=== PATIENT | female | born 1975 | race American Indian/Alaskan Native ===

== ENCOUNTER 2016-08-10 08:45 | Emergency (ER) | payer OTHER ==
[2016-08-10 11:10] VITALS: BP 152/92
--- NOTE | 2016-08-11 18:31 | Emergency Department Report ---
Entered by MADISON FLORES, acting as scribe for KEITH BIRCH PA. ED Recheck HPI - General Chief Complaint: Medical Clearance Stated Complaint: FOLLOW UP Time Seen by Provider: 08/10/16 10:30 Source: patient, family Mode of arrival: Ambulatory Limitations: No Limitations - History of Present Illness Initial Comments: 41 y/o female with no significant PMHx presents to the ED c/o a quantitative HCG lab repeat. Patient was seen in this ED on 08/08/2016, because she had a miscarriage. Patient was told to follow-up in 2 days for lab repeat of hormone levels. Denies abdominal pain, nausea, vomiting, dysuria, urgency, frequency, and vaginal bleeding. Patient states that she feel good now and have no complaints. NKDA. COOLEY Complaint: other (HCG lab repeat) Onset/Timin -: days(s) Initial Visit For: other (patient miscarried on 08/08/2016) Returns Today for: other (repeat quantitative HCG after miscarriage on 2016) Symptoms Since Prior Visit: no new symptoms Context: planned re-check Associated Symptoms: none. denies: fever, chills, chest pain, shortness of breath, abdominal pain, other (nausea, vomiting, dysuria, urgency, frequency, and vaginal bleeding) Treatments Prior to Arrival: other (none) - Related Data Previous Rx's Medication Instructions Recorded Last Taken Type Ondansetron HCl [Zofran] 8 mg PO TID PRN #24 tablet 08/10/14 Unknown Rx metroNIDAZOLE 500 mg PO BID #10 tablet 08/10/14 Unknown Rx Allergies Allergy/AdvReac Type Severity Reaction Status Date / Time No Known Allergies Allergy Verified 08/10/16 08:50 ED Review of Systems Comment: All other systems reviewed and negative Constitutional: no symptoms reported. denies: chills, fever Respiratory: no symptoms reported. denies: cough, orthopnea, shortness of breath, SOB with exertion, SOB at rest, stridor Cardiovascular: denies: chest pain, palpitations, edema, syncope Endocrine: no symptoms reported Gastrointestinal: as per HPI. denies: abdominal pain, nausea, vomiting, diarrhea Genitourinary: as per HPI. denies: urgency, dysuria, frequency, hematuria, discharge, other (vaginal bleeding) Musculoskeletal: denies: back pain, joint swelling Skin: denies: rash ED Past Medical Hx - Past Medical History Previous Medical History?: No - Surgical History Past Surgical History?: No - Family History Family history: no significant - Social History Smoking Status: Never Smoker Substance Use Type: None - Medications Home Medications: Home Medications Medication Instructions Recorded Confirmed Last Taken Type Ondansetron HCl [Zofran] 8 mg PO TID PRN #24 tablet 08/10/14 Unknown Rx metroNIDAZOLE 500 mg PO BID #10 tablet 08/10/14 Unknown Rx ED Physical Exam - General Limitations: No Limitations General appearance: alert, in no apparent distress - Head Head exam: Present: atraumatic, normocephalic - Eye Eye exam: Present: normal appearance, PERRL, EOMI Pupils: Present: normal accommodation - ENT ENT exam: Present: normal exam, mucous membranes moist - Neck Neck exam: Present: normal inspection (supple), full ROM. Absent: tenderness, meningismus, lymphadenopathy - Respiratory Respiratory exam: Present: normal lung sounds bilaterally (clear to ausculatation bilaterally), other (normal work of breathing). Absent: respiratory distress, wheezes, rales, rhonchi, stridor - Cardiovascular Cardiovascular Exam: Present: regular rate (S1/S2), normal rhythm, normal heart sounds - GI/Abdominal GI/Abdominal exam: Present: soft, normal bowel sounds. Absent: distended, tenderness, guarding, rebound, rigid - Extremities Exam Extremities exam: Present: normal inspection, full ROM, normal capillary refill , other (palpable pulses with no vasuclar compromise). Absent: tenderness - Back Exam Back exam: Present: normal inspection, full ROM. Absent: tenderness, CVA tenderness (R), CVA tenderness (L) - Neurological Exam Neurological exam: Present: alert, oriented X3, normal gait, reflexes normal. Absent: motor sensory deficit - Psychiatric Psychiatric exam: Present: normal affect, normal mood - Skin Skin exam: Present: warm, dry, intact, normal color. Absent: rash, cyanosis ( clubbing cyanosis) ED Course Vital Signs 08/10/16 08/10/16 08:50 11:10 Pulse Rate 59 L Blood Pressure 154/103 Blood Pressure 152/92 [Right] O2 Sat by Pulse 100 Oximetry Vital Signs 08/10/16 08/10/16 08:50 11:10 Pulse Rate 59 L Blood Pressure 154/103 Blood Pressure 152/92 [Right] O2 Sat by Pulse 100 Oximetry - Reevaluation(s) Reevaluation #1: 08/10/16 11:27 Patient here for follow-up visit status post miscarriage therefore quantitative hCG checked. Her quantitative hCG 2 days ago 25.37 and now it's 31.78. I spoke with Dr. Leslie and he said that this is okay and that patient can follow up at [facility] with her [employer] [facility] in 2 days.. ED Recheck MDM - Medical Decision Making ED course: Patient here for follow-up visit status post miscarriage therefore quantitative hCG checked. Her quantitative hCG 2 days ago 25.37 and now it's 31.78. I spoke with Dr. Leslie and he said that this is okay and that patient can follow up at [facility] with her [employer] [facility] in 2 days. I communicated this with patient and her family and therefore was understanding. Patient says she was feeling a lot better and she is no longer bleeding, no abdominal or back pain. Her blood pressure was elevated at 154/103 but is still mildly elevated but her diastolic is now at 92. ED Disposition Clinical Impression: Encounter for laboratory test, Elevated BP without diagnosis of hypertension Disposition: DISCHARGED TO HOME OR SELFCARE Is pt being admited?: No Does the pt Need Aspirin: No Condition: Stable Instructions: Spontaneous Miscarriage (ED), Heart Healthy Diet (ED), Low Sodium Diet (ED), Hypertension (ED) Additional Instructions: quantitative hCG was checked today and Stable. Please call [facility] [facility] in 2 days schedule an appointment for follow-up visit miscarriage and hormone recheck They were going to [place] for care so if he cannot get into my [facility] [facility] he can go back to [facility]. Your blood pressure was elevated on 08/08/2016 and it is elevated today. To keep a log of Blood pressure and takes he primary care physician visit to evaluate for hypertension. If you develop abdominal pain and recurrence of bleeding please return to emergency room [facility]. Referrals: [facility] [Outside] - 08/12/16 [facility] [Provider Group] - 08/12/16 Forms: Accompanied Note, Work/School Release Form(ED) Print Language: EMIRATI This documentation as recorded by the SANDRA arias JASMINE,accurately reflects the service I personally performed and the decisions made by me,KEITH BIRCH PA.
== END 2016-08-10 11:44 | disposition home or self-care (01) ==
LOC: ED 08:45
DX: Z32.01 Encounter for pregnancy test, result positive (principal); R03.0 Elevated blood-pressure reading, without diagnosis of hypertension
CPT/HCPCS: 36415; 84702; 84703; 99283

== ENCOUNTER 2017-07-30 13:38 | Inpatient (IN) | payer OTHER ==
[~2017-07-30 13:38] MED LIST: NACL 0.9% IR ONE; WATER FOR IRRIG STERILE IR ONE
[2017-07-30] MEDS ORDERED: TYLENOL PO ONE (15:00)
[2017-07-30 15:03] LABS: Hematocrit 36.4 % (30.3-42.9); Hemoglobin 11.7 gm/dl (10.1-14.3); Mean Corpuscular HGB Conc 32 % (30-34); Mean Corpuscular Hemoglobin 26 pg (28-32); Mean Corpuscular Volume 81 fl (79-97); Platelet Count 194 K/mm3 (140-440); Red Cell Distribution Width 14.9 % (13.2-15.2)
[2017-07-30 15:15] LABS: Bacteria,Urine 1+ /HPF (Negative); Bilirubin,Urine NEG (Negative); Blood,Urine NEG (Negative); Color,Urine Yellow (Yellow); Mucus,Urine FEW /HPF; Protein,Urine <15 mg/dL mg/dL (Negative); Urobilinogen,Urine < 2.0 mg/dL (<2.0); WBC,Urine < 1.0 /HPF (0.0-6.0)
[2017-07-30 15:24] LABS: Alanine Aminotransferase 11 units/L (7-56); Uric Acid 4.9 mg/dL (3.5-7.6)
[2017-07-30] MEDS ORDERED: MAGNESIUM SULFATE IV ONE (15:58)
[2017-07-30] MEDS ORDERED: LACTATED RINGERS 1,000 ML ONE (16:55)
[2017-07-30] MEDS ORDERED: MAGNESIUM SULFATE 4GM/100ML 4 GM/100 ML BAG IV ONE (17:00)
[2017-07-30] MEDS: APRESOLINE IV PRN ×2 (17:11→20:30)
[2017-07-30] MEDS ORDERED: COLACE PO PRN (17:31)
[2017-07-30] MEDS ORDERED: MILK OF MAGNESIA PO PRN (17:31)
[2017-07-30] MEDS ORDERED: ZOFRAN IV PRN (17:31)
[2017-07-30] MEDS ORDERED: BENADRYL PO PRN (17:31)
[2017-07-30] MEDS ORDERED: TYLENOL PO PRN (17:31)
--- NOTE | 2017-07-30 17:38 | History and Physical Report ---
History of Present Illness Date of examination: 07/30/17 Chief complaint: Elevated BP's and headaches History of present illness: Pt is a 42yo BF EDC 09/02/17; EGA 35 1/7 weeks presents from the office for evaluation of elevated BP's and headaches for several days - BP 166/100. She received care at [facility] since 16 weeks and co- managed by [facility] for AMA, Chronic hypertension - on Labetolol 200mg BID; GDM - on Glyburide 5mg TID and + Down's syndrome screen. records are available and GBS is unknown. Pt also desires permanent sterilization. Past History Past Medical History: hypertension, diabetes (GDM) Past Surgical History: section (x2) Social history: no significant social history, - Obstetrical History Expected Date of Delivery: 09/02/17 Actual Gestation: 35 Week(s) 1 Day(s) : 3 Medications and Allergies Allergies Allergy/AdvReac Type Severity Reaction Status Date / Time No Known Allergies Allergy Verified 08/10/16 08:50 Home Medications Medication Instructions Recorded Confirmed Last Taken Type Ondansetron HCl [Zofran] 8 mg PO TID PRN #24 tablet 08/10/14 Unknown Rx metroNIDAZOLE 500 mg PO BID #10 tablet 08/10/14 Unknown Rx Active Meds: Active Medications Hydralazine HCl (Apresoline) 10 mg IV Q4H PRN PRN Reason: Blood Pressure Last Admin: 07/30/17 17:11 Dose: 10 mg Magnesium Sulfate (Magnesium Sulfate 40gm/1000ml) 40 gm in 1,000 mls @ 25 mls/ hr IV DIRECT DANA Review of Systems All systems: negative - Vital Signs Vital signs: Vital Signs Pulse BP 64 186/99 07/30/17 14:08 07/30/17 14:08 Temp Pulse Resp BP Pulse Ox 98.4 F 70 18 178/95 97 07/30/17 14:10 07/30/17 17:37 07/30/17 14:49 07/30/17 17:26 07/30/17 17:37 - Physical Exam Breasts: Positive: deferred Cardiovascular: Regular rate Lungs: Positive: Clear to auscultation Abdomen: Positive: normal appearance, soft Genitourinary (Female): Positive: normal external genitalia Uterus: Positive: enlarged Extremities: Positive: normal - Obstetrical FHR: category 1 Uterine Contraction Monitor Mode: External Results Result Diagrams: 07/30/17 14:34 07/30/17 14:34 Abnormal lab results 07/30/17 07/30/17 Range/Units 14:34 14:34 MCH 26 L (28-32) pg Creatinine 0.4 L (0.7-1.2) mg/dL All other labs normal. Assessment and Plan - Patient Problems (1) 35 weeks gestation of Onset Date: 07/30/17 Current Visit: Yes Status: Acute Plan to address problem: A: IUP @ 35 1/7 weeks Previous C Section x 2 GDM Chronic hypertension with superimposed preeclampsia AMA Desires permanent sterilization P: Admit to L&D for Repeat C Section with BTL Begin IV Magnesium sulfate and IV Hydralazine prn Discussed with Dr Young ([facility]) NICU notified (2) AMA (advanced maternal age) multigravida 35+ Onset Date: 07/30/17 Current Visit: Yes Status: Acute Qualifiers: Trimester: third trimester Qualified Code(s): O09.523 - Supervision of elderly multigravida, third trimester (3) GDM (gestational diabetes mellitus) Onset Date: 07/30/17 Current Visit: Yes Status: Acute Qualifiers: Gestational diabetes mellitus control: oral hypoglycemic-controlled Trimester: third trimester Qualified Code(s): O24.415 - Gestational diabetes mellitus in , controlled by oral hypoglycemic drugs (4) Pre-eclampsia or eclampsia superimposed on pre-existing hypertension, antepartum Onset Date: 07/30/17 Current Visit: Yes Status: Acute
[2017-07-30] MEDS: MAGNESIUM SULFATE 40GM/1000ML 40 GM/1,000 ML BAG IV SCH (17:46)
[2017-07-30] MEDS ORDERED: REGLAN IV ONE (18:55)
[2017-07-30] MEDS ORDERED: BICITRA PO ONE (18:55)
[2017-07-30] MEDS ORDERED: PEPCID IV ONE (18:55)
[2017-07-30] MEDS ORDERED: ANCEF/STERILE WATER 2 GM/20 ML 2 GM/20 ML SYRINGE IV NR (19:00)
[2017-07-30] MEDS ORDERED: PITOCin/NS 20 UNIT/1000ML DRIP 20 UNITS/1,000 ML BAG IV SCH (19:00)
--- NOTE | 2017-07-30 19:03 | Consultation ---
History of Present Illness Consult date: 07/30/17 Requesting physician: SAUL FLORES Reason for consult: gestational hypertension History of present illness: Thank you for your referral of this patient. As you are aware she is a 42 year old para 4004 referred due to AMA, CHTN and GDM. Her blood pressure is markedly elevated at 200/98. We reviewed her chart in the hospital today. Case discussed with patient. Past History Past Medical History: hypertension, diabetes (GDM) Past Surgical History: section (x2) - Obstetrical History : 3 Medications and Allergies Allergies Allergy/AdvReac Type Severity Reaction Status Date / Time No Known Allergies Allergy Verified 08/10/16 08:50 Home Medications Medication Instructions Recorded Confirmed Last Taken Type Ondansetron HCl [Zofran] 8 mg PO TID PRN #24 tablet 08/10/14 Unknown Rx metroNIDAZOLE 500 mg PO BID #10 tablet 08/10/14 Unknown Rx Ferrous Sulfate [Feosol 325 MG tab] 325 mg PO BID #60 tablet 07/30/17 Unknown Rx HYDROcodone/APAP 5-325 [R[place]ven 1 each PO Q6HR PRN #30 tablet 07/30/17 Unknown Rx 5/325] Ibuprofen [Motrin] 800 mg PO Q8HR PRN #30 tablet 07/30/17 Unknown Rx Vit Calc,Iron,Folic 1 each PO DAILY #30 tablet 07/30/17 Unknown Rx [ Vitamins] Active Meds: Active Medications Acetaminophen (Tylenol) 650 mg PO Q4H PRN PRN Reason: Pain MILD(1-3)/Fever >100.5/SOOD Citric Acid/Sodium Citrate (Bicitra) 30 ml PO ONCE ONE Stop: 07/30/17 18:56 Diphenhydramine HCl (Benadryl) 25 mg PO Q6H PRN PRN Reason: Itching Docusate Sodium (Colace) 100 mg PO Q12H PRN PRN Reason: Constipation Famotidine (Pepcid) 20 mg IV ONCE ONE Stop: 07/30/17 18:56 Hydralazine HCl (Apresoline) 10 mg IV Q4H PRN PRN Reason: Blood Pressure Last Admin: 07/30/17 17:11 Dose: 10 mg Magnesium Sulfate (Magnesium Sulfate 40gm/1000ml) 40 gm in 1,000 mls @ 25 mls/ hr IV DIRECT DANA Last Admin: 07/30/17 17:46 Dose: 1 gm/hr, 25 mls/hr Cefazolin Sodium (Ancef/Sterile Water 2 Gm/20 Ml) 2 gm in 20 mls @ 80 mls/hr IV PREOP NR; Protocol Lactated Ringer's (Lactated Ringers) 1,000 mls @ 2,250 mls/hr IV PREOP DANA Stop: 07/31/17 19:27 Oxytocin/Sodium Chloride (Pitocin/Ns 20 Unit/1000ml Drip) 20 units in 1,000 mls @ 0 mls/hr IV TITR DANA Magnesium Hydroxide (Milk Of Magnesia) 30 ml PO QHS PRN PRN Reason: Laxative Effect Metoclopramide HCl (Reglan) 10 mg IV ONCE ONE Stop: 07/30/17 18:56 Multivitamins/Iron/Calcium ( Vitamin) 1 each PO QDAY DANA Ondansetron HCl (Zofran) 4 mg IV Q6H PRN PRN Reason: Nausea And Vomiting - Vital Signs Vital signs: Vital Signs Pulse BP 64 186/99 07/30/17 14:08 07/30/17 14:08 Temp Pulse Resp BP Pulse Ox 98.4 F 64 18 184/94 99 07/30/17 14:10 07/30/17 19:01 07/30/17 14:49 07/30/17 19:00 07/30/17 19:01 Results Result Diagrams: 07/30/17 14:34 07/30/17 14:34 Abnormal lab results 07/30/17 07/30/17 Range/Units 14:34 14:34 MCH 26 L (28-32) pg Creatinine 0.4 L (0.7-1.2) mg/dL All other labs normal. Assessment and Plan ASSESSMENT: 42 year at 35 with gestational diabetes. Possibly Pregestational Advanced maternal age Chronic hypertension with signs of superimposed preeclampsia. We recommend stabilization and delivery. Currently, we would recommend DELIVERY rather than expectant management. DISCUSSION: I've indicated to the patient that there are a number of medical complications which would require early delivery as a general rule for any gestation. I've indicated that unexplained vaginal bleeding, spontaneous labor, - induced hypertension and other complications would require delivery before an elective delivery. I've also indicated the recommendations from the [employer] published in the ACOG committee opinion number 560 regarding early term delivery. As well as recent studies from the Journal Obstetrics and Gynecology published in March [address] Rey et al indicate that for chronic hypertension with signs of severe preelcampsia should be delivered after 34 weeks of gestation. Based on the fact that this patient has preeclampsia and new onset neurological symptoms as well as elevated systolic blood pressure we would recommend DELIVERY of this rather than continued expectant management. REFERENCE: Medically indicated late- and early-term deliveries. Committee Opinion No. 560. [employer]. Obstet Gynecol 2013;121:23120. While some management schemes for the patient with induced hypertension recommend observation in order to administer steroids and enhance maturation, this patient currently has at least TWO contraindication to this kind of expectant management of induced hypertension. These include: * ____Liver function abnormalities, and * _X__ Neurological symptoms (headache). * ____ Abnormal biophysical testing (oligohydramnios) * ____ Severe growth restriction * ____Fetal heart rate findings consistent with hypoxia/ distress * _X__ EGA is greater than 32 weeks gestation RECOMMENDATIONS 1. We have administered steroids to enhance lung maturity. 2. Given her gestational age we would recommend DELIVERY due to SEVERE superimposed preeclampsia. 3. Hydralazine PRN. 10 mg every 30 minutes for SBP > 160 or DBP > 105 x 3 doses HOLD HYDRALAZINE OR APRESSOLINE at this time. 4. Call [facility] for more than 3 dosages of Hydralazine in 24 hours. 5. Observe for improvement in blood pressure. 6. Would proceed as follows: 7. Mode of delivery to be determined by MD montessori preschool teacher. 8. Discussed case with Dr. Saul Flores. Thank you for allowing us to participate in the care of this patient. We look forward to the opportunity to assist in her continued management. If you have any questions, we may be reached [phone].
[2017-07-30] MEDS: LACTATED RINGERS 1,000 ML IV SCH ×2 (19:30→20:35)
[2017-07-30 20:32] LABS: Bilirubin,Urine NEG (Negative); Blood,Urine NEG (Negative); Color,Urine Straw (Yellow); Mucus,Urine FEW /HPF; Protein,Urine <15 mg/dL mg/dL (Negative); Urobilinogen,Urine < 2.0 mg/dL (<2.0); WBC,Urine < 1.0 /HPF (0.0-6.0)
[2017-07-30 20:32] LABS: Hematocrit 36.6 % (30.3-42.9); Hemoglobin 12.1 gm/dl (10.1-14.3); Mean Corpuscular HGB Conc 33 % (30-34); Mean Corpuscular Hemoglobin 27 pg (28-32); Mean Corpuscular Volume 81 fl (79-97); Platelet Count 197 K/mm3 (140-440); Red Blood Count 4.55 M/mm3 (3.65-5.03)
[2017-07-30] MEDS ORDERED: D5LR 1,000 ML IV ONE (20:42)
[2017-07-30 20:56] LABS: Alanine Aminotransferase 11 units/L (7-56); Uric Acid 5.2 mg/dL (3.5-7.6)
[2017-07-31] MEDS ORDERED: ASTRAMORPH PF 10MG/10ML ONE (01:49)
--- NOTE | 2017-07-31 02:10 | Operative Report ---
Operative Report Operative Report: Date of procedure: 07/31/2017 Pre-operative diagnosis: 1. Intrauterine at 35-2/7 weeks 2. Previous 2 3. Gestational diabetes 4. Chronic hypertension with superimposed preeclampsia 5. Advanced maternal age 6. Desires permanent sterilization Post-operative diagnosis: Same Procedure name(s): 1. Repeat low transverse section 2. Bilateral tubal ligation Surgeon: Saul Flores MD Buckle Sorter: None Anesthesia: Spinal anesthesia by Dr. Kirkpatrick EBL: 800 mls Findings: A 1947 g female infant Apgars 8 at 1 minute and 9 at 5 minutes. Clear amniotic fluid. Normal uterus. Normal tubes and ovaries bilaterally. Procedure: After the patient was prepped and draped in usual sterile fashion, and after satisfactory level of epidural anesthesia was obtained, the skin knife was used to make a transverse skin incision through the previous skin scar. The incision was excised down to layer of the fascia, which was nicked in the midline and extended laterally using the Bovie cautery. The rectus muscles were dissected off the rectus fascia both superiorly and inferiorly. The rectus bellies in the midline, and the peritoneum was entered under direct visualization. The peritoneal incision was extended superiorly and inferiorly. A bladder flap was created and the bladder blade was then placed. The uterus was scored in a curvilinear linear fashion, entered in the midline revealing clear amniotic fluid. The 's head was delivered onto the surgical field, and the oropharynx and nasopharynx were bulb suctioned. The rest of the 's body was delivered, cord was doubly clamped and cut and the was handed to the waiting respiratory team. The placenta was manually removed from the uterus, and the uterus removed from its normal anatomical position. After gentle uterine lavage, the incision was inspected and found to be without extensions. It was then closed in 2 layers using 0 Vicryl suture in a running interlocking fashion, the second layer imbricating the first. Attention was then turned to the tubal ligation. First the right fallopian tube was grasped using Anuja, and the Filshie clip was applied to the proximal portion of the tube. Next the left fallopian tube was grasped using the [place], and the Filshie clip was applied to the proximal portion of the tube. After good hemostasis was achieved, copious amounts or irrigation was performed, and the gutters were suctioned free of blood and blood clots. The Tisseel sealant was sprayed across the uterine incision. The uterus was then returned to its normal anatomical position, and after excellent hemostasis assured, the peritoneum was re-approximated using 3-0 Vicryl suture in a running interlocking fashion, and then the rectus muscles were re-approximated using 3-0 Vicryl suture in a [id number] configuration. The fascia was then re-approximated using 0 Vicryl suture in running interlocking fashion. The subcutaneous layer was made hemostatic using Bovie cautery, the Tisseel sealant was sprayed across the fascial incision and the skin edges re- approximated using 4-0 Vicryl suture in a sub-cuticular fashion. Patient tolerated the procedure well was transported to recovery in stable condition.
[2017-07-31] MEDS ORDERED: TUCKS PAD TP PRN (02:13)
[2017-07-31] MEDS ORDERED: LANSINOH TP PRN (02:13)
[2017-07-31] MEDS ORDERED: D50W (25GM) Syringe IV PRN (02:13)
[2017-07-31] MEDS ORDERED: NARCAN 0.4 MG/1 ML IV PRN ×2 (02:13→02:30)
--- NOTE | 2017-07-31 02:29 | Anesthesia Consultation ---
Anesthesia Consult and Med Hx Date of service: 07/31/17 - Airway Anesthetic Teeth Evaluation: Good ROM Head & Neck: Adequate Mental/Hyoid Distance: Adequate Mallampati Class: Class II Intubation Access Assessment: Probably Good - Pulmonary Exam CTA: Yes - Cardiac Exam Cardiac Exam: RRR - Pre-Operative Health Status ASA Pre-Surgery Classification: ASA3, Emergency Proposed Anesthetic Plan: Spinal - Pulmonary Hx Asthma: No - Cardiovascular System Hx Hypertension: Yes (preclampsia) - Central Nervous System Hx Seizures: No Hx Psychiatric Problems: No - Endocrine Hx Renal Disease: No Hx Non-Insulin Dependent Diabetes: Yes (gestational diabetes) Hx Hypothyroidism: No Hx Hyperthyroidism: No - Hematic Hx Anemia: No Hx Sickle Cell Disease: No - Other Systems Hx Alcohol Use: No
[2017-07-31] MEDS ORDERED: PHENERGAN PO PRN (02:30)
[2017-07-31] MEDS ORDERED: PHENERGAN PR PRN (02:30)
--- NOTE | 2017-07-31 02:30 | Post Anesthesia Evaluation ---
- Post Anesthesia Evaluation Patient Participated: Yes Airway Patent: Yes Stable Respiratory Function: Yes Nausea/Vomiting: No Temp > 96.8F: Yes Pain Manageable: Yes Adequeate Hydration: Yes Anesthesia Complications: Yes
--- NOTE | 2017-07-31 02:30 | Anesthesia Day of Surgery ---
Anesthesia Day of Surgery - Day of Surgery Patient Examined: Yes Patient H&P Reviewed: Yes Patient is NPO: Yes Beta Blockers: Yes Cardiac Clearance: Yes Pulmonary Clearance: No
[2017-07-31] MEDS: MAGNESIUM SULFATE 40GM/1000ML 40 GM/1,000 ML BAG IV SCH ×2 (02:52→21:18)
[2017-07-31] MEDS ORDERED: PITOCin/NS 20 UNIT/1000ML DRIP 20 UNITS/1,000 ML BAG IV SCH (03:00)
[2017-07-31] MEDS ORDERED: ANCEF/NS 1 GM/50 ML 1 GM/50 ML BAG IV SCH (03:00)
[2017-07-31] MEDS ORDERED: D5LR 1,000 ML IV SCH (03:00)
[2017-07-31] MEDS ORDERED: SODIUM CHLORIDE FLUSH SYRINGE 10 ML IV NR (03:00)
[2017-07-31] MEDS: DILAUDID IV PRN ×2 (03:33→03:46)
[2017-07-31] MEDS: TORADOL IV PRN ×2 (03:35→09:21)
[2017-07-31] MEDS: APRESOLINE IV PRN ×3 (03:53→21:00)
[2017-07-31] MEDS: ceFAZolin 1 GM in NACL 0.9% 20 ML IV SCH ×2 (05:21→13:51)
[2017-07-31] MEDS ORDERED: DILAUDID ONE (06:12)
[2017-07-31] MEDS ORDERED: APRESOLINE ONE (06:19)
[2017-07-31] MEDS: PRENATAL VITAMIN PO SCH (09:18)
[2017-07-31] MEDS: FEOSOL PO SCH (09:18)
[2017-07-31] MEDS ORDERED: LACTATED RINGERS 1,000 ML ONE (13:25)
[2017-07-31] MEDS: PERCOCET 5/325 PO PRN (13:41)
[2017-07-31] MEDS: LACTATED RINGERS 1,000 ML IV SCH (13:45)
[2017-07-31] MEDS: NORCO 5/325 PO PRN (18:30)
[2017-07-31] MEDS: MOTRIN PO PRN (20:56)
[2017-07-31] MEDS: HumuLIN R SUB-Q SCH (22:29)
[2017-07-31] MEDS: NORMODYNE PO SCH (22:34)
[2017-08-01] MEDS: LACTATED RINGERS 1,000 ML IV SCH (01:41)
[2017-08-01] MEDS: PERCOCET 5/325 PO PRN ×2 (03:27→20:45)
[2017-08-01] MEDS ORDERED: BOOSTRIX IM ONE (06:00)
[2017-08-01] MEDS ORDERED: M-M-R II VACCINE SUB-Q ONE (06:00)
[2017-08-01] MEDS: APRESOLINE IV PRN (06:34)
[2017-08-01] MEDS: MOTRIN PO PRN ×3 (06:54→21:56)
[2017-08-01] MEDS: HumuLIN R SUB-Q SCH ×4 (08:00→22:09)
[2017-08-01] MEDS: NORMODYNE PO SCH ×2 (10:15→21:57)
[2017-08-01] MEDS: FEOSOL PO SCH (10:29)
[2017-08-01] MEDS: PRENATAL VITAMIN PO SCH (10:29)
--- NOTE | 2017-08-01 10:32 | Progress Note ---
Assessment and Plan - Patient Problems (1) 35 weeks gestation of Onset Date: 07/30/17 Current Visit: Yes Status: Resolved (2) AMA (advanced maternal age) multigravida 35+ Onset Date: 07/30/17 Current Visit: Yes Status: Chronic Qualifiers: Trimester: third trimester Qualified Code(s): O09.523 - Supervision of elderly multigravida, third trimester (3) GDM (gestational diabetes mellitus) Onset Date: 07/30/17 Current Visit: Yes Status: Chronic Qualifiers: Gestational diabetes mellitus control: oral hypoglycemic-controlled Trimester: third trimester Qualified Code(s): O24.415 - Gestational diabetes mellitus in , controlled by oral hypoglycemic drugs (4) Pre-eclampsia or eclampsia superimposed on pre-existing hypertension, antepartum Onset Date: 07/30/17 Current Visit: Yes Status: Resolved (5) Status post Onset Date: 08/01/17 Current Visit: Yes Status: Resolved Plan to address problem: A: S/P Repeat C Section with BTL - POD #1 Doing well Chronic hypertension - improved on Labetolol 200mg BID GDM - stable P: Continue RPOC Advance diet as tolerated Continue BP monitoring Subjective - Subjective Date of service: 08/01/17 Principal diagnosis: s/p Repeat C Section with BTL - POD #1 Interval history: Pt is feeling well, complaining of a sore throat. Tolerating a liquid diet without nausea or vomiting. Patient reports: appetite normal, voiding normally, pain well controlled, flatus , ambulating normally, no nauseated [place]: doing well, in NICU Objective - Vital Signs Latest vital signs: Vital Signs Temp Pulse Resp BP BP Pulse Ox 08/01/17 07:05 69 172/83 08/01/17 06:50 75 165/87 08/01/17 06:45 74 145/80 08/01/17 06:40 70 18 174/90 08/01/17 06:34 63 170/87 08/01/17 06:17 70 18 160/93 08/01/17 05:00 98.8 F 71 18 178/85 97 08/01/17 00:20 99.1 F 72 18 144/90 98 07/31/17 23:30 68 18 152/80 07/31/17 23:00 67 18 161/77 07/31/17 22:34 72 181/89 07/31/17 22:30 72 18 181/89 07/31/17 22:15 70 18 172/89 07/31/17 22:00 73 18 182/86 07/31/17 21:45 78 18 185/92 07/31/17 21:30 75 18 184/90 07/31/17 21:15 74 18 182/91 07/31/17 21:10 75 18 177/93 07/31/17 21:05 72 18 184/92 07/31/17 21:00 72 195/95 07/31/17 20:37 98.4 F 76 18 184/85 97 07/31/17 18:04 98.5 F 72 24 154/92 98 07/31/17 16:05 97.8 F 72 28 H 145/73 97 07/31/17 14:09 98.5 F 78 28 H 157/81 98 07/31/17 13:41 22 07/31/17 11:50 98.9 F 86 30 H 124/68 97 Intake and Output 07/31/17 08/01/17 08/01/17 22:59 06:59 14:59 Intake Total 6053.612 0934 Output Total 650 1400 Balance 391.667 -385 Intake: IV 921.667 895 Lactated Ringers 1,000 ml 895 @ 75 mls/hr IV DIRECT DANA Rx#:[id number] MAGNESIUM SULFATE 40GM/ 921.667 1000ML 40 gm In 1,000 ml @ 1 GM/HR 25 mls/hr IV DIRECT DANA Rx#:[id number] Oral 120 120 Output: Urine 650 1400 Indwelling Catheter 650 1400 Other: Total, Intake Amount 120 120 Total, Output Amount 650 1400 - Exam Breasts: Present: deferred Cardiovascular: Present: Regular rate Lungs: Present: Clear to auscultation Abdomen: Present: normal appearance, soft Uterus: Present: normal, firm, fundal height below umbilicus Extremities: Present: normal Incision: Present: normal, dry, intact, dressed - Labs Labs: Abnormal lab results 07/31/17 07/31/17 07/31/17 Range/Units 12:01 13:55 16:59 POC Glucose 125 H 142 H (70-105) Magnesium 4.80 H (1.7-2.3) mg/dL 07/31/17 07/31/17 08/01/17 Range/Units 17:22 22:31 00:15 POC Glucose 129 H (70-105) Magnesium 5.10 H 5.00 H (1.7-2.3) mg/dL 08/01/17 Range/Units 07:32 POC Glucose (70-105) Magnesium 3.30 H (1.7-2.3) mg/dL Laboratory Tests 07/30/17 07/30/17 07/30/17 14:34 14:34 14:34 WBC 7.0 RBC 4.50 Hgb 11.7 Hct 36.4 MCV 81 MCH 26 L MCHC 32 RDW 14.9 Plt Count 194 Creatinine 0.4 L Estimated GFR > 60 POC Glucose Uric Acid 4.9 Magnesium AST 13 ALT 11 Lactate Dehydrogenase 173 Urine Color Yellow Urine Turbidity Clear Urine pH 7.0 Ur Specific [place] 1.006 Urine Protein <15 mg/dl Urine Glucose (UA) Neg Urine Ketones Neg Urine Blood Neg Urine Nitrite Neg Urine Bilirubin Neg Urine Urobilinogen < 2.0 Ur Leukocyte Esterase Neg Urine WBC (Auto) < 1.0 Urine RBC (Auto) 1.0 U Epithel Cells (Auto) 2.0 Urine Bacteria (Auto) 1+ Urine Mucus Few Blood Type Antibody Screen 07/30/17 07/30/17 07/30/17 20:01 20:04 20:04 WBC 8.1 RBC 4.55 Hgb 12.1 Hct 36.6 MCV 81 MCH 27 L MCHC 33 RDW 15.0 Plt Count 197 Creatinine 0.3 L Estimated GFR > 60 POC Glucose Uric Acid 5.2 Magnesium AST 13 ALT 11 Lactate Dehydrogenase 161 Urine Color Straw Urine Turbidity Clear Urine pH 6.0 Ur Specific [place] 1.006 Urine Protein <15 mg/dl Urine Glucose (UA) Neg Urine Ketones 20 Urine Blood Neg Urine Nitrite Neg Urine Bilirubin Neg Urine Urobilinogen < 2.0 Ur Leukocyte Esterase Neg Urine WBC (Auto) < 1.0 Urine RBC (Auto) 1.0 U Epithel Cells (Auto) < 1.0 Urine Bacteria (Auto) Urine Mucus Few Blood Type Antibody Screen 07/30/17 07/30/17 07/31/17 20:04 20:15 02:38 WBC RBC Hgb Hct MCV MCH MCHC RDW Plt Count Creatinine Estimated GFR POC Glucose 55 L 121 H Uric Acid Magnesium AST ALT Lactate Dehydrogenase Urine Color Urine Turbidity Urine pH Ur Specific [place] Urine Protein Urine Glucose (UA) Urine Ketones Urine Blood Urine Nitrite Urine Bilirubin Urine Urobilinogen Ur Leukocyte Esterase Urine WBC (Auto) Urine RBC (Auto) U Epithel Cells (Auto) Urine Bacteria (Auto) Urine Mucus Blood Type AB POSITIVE Antibody Screen Negative 07/31/17 07/31/17 07/31/17 02:50 08:33 12:01 WBC RBC Hgb Hct MCV MCH MCHC RDW Plt Count Creatinine Estimated GFR POC Glucose 104 125 H Uric Acid Magnesium 3.90 H AST ALT Lactate Dehydrogenase Urine Color Urine Turbidity Urine pH Ur Specific [place] Urine Protein Urine Glucose (UA) Urine Ketones Urine Blood Urine Nitrite Urine Bilirubin Urine Urobilinogen Ur Leukocyte Esterase Urine WBC (Auto) Urine RBC (Auto) U Epithel Cells (Auto) Urine Bacteria (Auto) Urine Mucus Blood Type Antibody Screen 07/31/17 07/31/17 07/31/17 13:55 13:55 16:59 WBC RBC Hgb 11.0 Hct 33.0 MCV MCH MCHC RDW Plt Count Creatinine Estimated GFR POC Glucose 142 H Uric Acid Magnesium 4.80 H AST ALT Lactate Dehydrogenase Urine Color Urine Turbidity Urine pH Ur Specific [place] Urine Protein Urine Glucose (UA) Urine Ketones Urine Blood Urine Nitrite Urine Bilirubin Urine Urobilinogen Ur Leukocyte Esterase Urine WBC (Auto) Urine RBC (Auto) U Epithel Cells (Auto) Urine Bacteria (Auto) Urine Mucus Blood Type Antibody Screen 07/31/17 07/31/17 08/01/17 17:22 22:31 00:15 WBC RBC Hgb Hct MCV MCH MCHC RDW Plt Count Creatinine Estimated GFR POC Glucose 129 H Uric Acid Magnesium 5.10 H 5.00 H AST ALT Lactate Dehydrogenase Urine Color Urine Turbidity Urine pH Ur Specific [place] Urine Protein Urine Glucose (UA) Urine Ketones Urine Blood Urine Nitrite Urine Bilirubin Urine Urobilinogen Ur Leukocyte Esterase Urine WBC (Auto) Urine RBC (Auto) U Epithel Cells (Auto) Urine Bacteria (Auto) Urine Mucus Blood Type Antibody Screen 08/01/17 07:32 WBC RBC Hgb Hct MCV MCH MCHC RDW Plt Count Creatinine Estimated GFR POC Glucose Uric Acid Magnesium 3.30 H AST ALT Lactate Dehydrogenase Urine Color Urine Turbidity Urine pH Ur Specific [place] Urine Protein Urine Glucose (UA) Urine Ketones Urine Blood Urine Nitrite Urine Bilirubin Urine Urobilinogen Ur Leukocyte Esterase Urine WBC (Auto) Urine RBC (Auto) U Epithel Cells (Auto) Urine Bacteria (Auto) Urine Mucus Blood Type Antibody Screen
[2017-08-01] MEDS: DIABETA PO SCH (14:27)
[2017-08-01] MEDS: CEPACOL X STRENGTH MM PRN (14:28)
[2017-08-01] MEDS: NORCO 5/325 PO PRN (15:10)
[2017-08-01] MEDS: MYLICON PO PRN (16:27)
[2017-08-02] MEDS: APRESOLINE IV PRN (02:00)
[2017-08-02] MEDS: PERCOCET 5/325 PO PRN ×2 (04:17→14:43)
[2017-08-02] MEDS: CEPACOL X STRENGTH MM PRN ×2 (04:18→14:44)
[2017-08-02] MEDS: MOTRIN PO PRN ×2 (04:18→14:43)
[2017-08-02] MEDS: PROCARDIA XL PO SCH (08:20)
[2017-08-02] MEDS: NORMODYNE PO SCH (08:20)
[2017-08-02] MEDS: FEOSOL PO SCH (08:20)
[2017-08-02] MEDS: DIABETA PO SCH ×3 (08:20→17:20)
[2017-08-02] MEDS: PRENATAL VITAMIN PO SCH (08:20)
--- NOTE | 2017-08-02 09:34 | Progress Note ---
Assessment and Plan - Patient Problems (1) 35 weeks gestation of Onset Date: 07/30/17 Current Visit: Yes Status: Resolved (2) AMA (advanced maternal age) multigravida 35+ Onset Date: 07/30/17 Current Visit: Yes Status: Chronic Qualifiers: Trimester: third trimester Qualified Code(s): O09.523 - Supervision of elderly multigravida, third trimester (3) GDM (gestational diabetes mellitus) Onset Date: 07/30/17 Current Visit: Yes Status: Chronic Qualifiers: Gestational diabetes mellitus control: oral hypoglycemic-controlled Trimester: third trimester Qualified Code(s): O24.415 - Gestational diabetes mellitus in , controlled by oral hypoglycemic drugs (4) Pre-eclampsia or eclampsia superimposed on pre-existing hypertension, antepartum Onset Date: 07/30/17 Current Visit: Yes Status: Resolved (5) Status post Onset Date: 08/01/17 Current Visit: Yes Status: Resolved Plan to address problem: A: S/P Repeat C Section with BTL - POD #2 Doing well Chronic hypertension - not controlled on Labetolol 200mg BID GDM - stable P: Continue RPOC Procardia XL 30mg QD added - Continue BP monitoring Subjective - Subjective Date of service: 08/02/17 Principal diagnosis: s/p Repeat C Section with BTL - POD #2 Interval history: Pt is feeling well, without complaints except unable to sleep. Tolerating a reg diet without nausea or vomiting, ambulating and voiding without difficulty. Patient reports: appetite normal, voiding normally, pain well controlled, flatus , ambulating normally, no dizzy ambulation, no nauseated [place]: doing well, in NICU Objective - Vital Signs Latest vital signs: Vital Signs Temp Pulse Resp BP BP Pulse Ox 08/02/17 08:20 98.4 F 70 18 190/94 190/94 08/02/17 06:18 161/89 08/02/17 04:05 75 18 155/79 08/02/17 03:35 82 18 161/77 08/02/17 03:33 99.0 F 78 20 161/77 97 08/02/17 03:05 78 18 153/70 08/02/17 02:50 76 143/71 08/02/17 02:35 71 143/71 08/02/17 02:20 79 161/84 08/02/17 02:15 78 18 171/89 08/02/17 02:10 79 18 177/88 08/02/17 02:05 83 18 163/86 08/02/17 02:00 78 178/97 08/02/17 00:13 99.1 F 78 20 177/98 92 08/01/17 21:57 74 177/102 08/01/17 19:50 97.9 F 90 20 192/111 99 08/01/17 16:10 98.7 F 73 20 168/88 08/01/17 14:10 98.8 F 80 18 147/85 08/01/17 10:15 98 H 168/92 Intake and Output 08/01/17 08/02/17 08/02/17 22:59 06:59 14:59 Intake Total 360 1120 Balance 360 1120 Intake: Oral 360 1120 Intake, Free Water 0 Other: Total, Intake Amount 360 620 Voiding Method Toilet # Voids Void 3 # Bowel Movements 1 - Exam Breasts: Present: deferred Cardiovascular: Present: Regular rate Lungs: Present: Clear to auscultation Abdomen: Present: normal appearance, soft Uterus: Present: normal, firm, fundal height below umbilicus Extremities: Present: normal Incision: Present: normal, dry, intact - Labs Labs: Abnormal lab results 08/01/17 08/01/17 08/01/17 Range/Units 08:58 12:53 13:02 POC Glucose 121 H 140 H (70-105) Magnesium 2.90 H (1.7-2.3) mg/dL 08/01/17 08/01/17 08/01/17 Range/Units 17:28 18:09 18:46 POC Glucose 64 L 147 H (70-105) Magnesium 2.50 H (1.7-2.3) mg/dL
[2017-08-03] MEDS: PERCOCET 5/325 PO PRN ×3 (00:56→21:49)
[2017-08-03] MEDS: NORMODYNE PO SCH ×3 (00:57→21:48)
[2017-08-03] MEDS: CEPACOL X STRENGTH MM PRN ×3 (00:58→12:28)
[2017-08-03] MEDS: MOTRIN PO PRN ×2 (06:50→12:20)
[2017-08-03] MEDS: DIABETA PO SCH ×3 (08:20→17:32)
[2017-08-03] MEDS: FEOSOL PO SCH (09:00)
[2017-08-03] MEDS: PRENATAL VITAMIN PO SCH (09:00)
[2017-08-03] MEDS: PROCARDIA XL PO SCH ×2 (09:00→21:49)
--- NOTE | 2017-08-03 10:22 | Progress Note ---
Assessment and Plan - Patient Problems (1) 35 weeks gestation of Onset Date: 07/30/17 Current Visit: Yes Status: Resolved (2) AMA (advanced maternal age) multigravida 35+ Onset Date: 07/30/17 Current Visit: Yes Status: Chronic Qualifiers: Trimester: third trimester Qualified Code(s): O09.523 - Supervision of elderly multigravida, third trimester (3) GDM (gestational diabetes mellitus) Onset Date: 07/30/17 Current Visit: Yes Status: Chronic Qualifiers: Gestational diabetes mellitus control: oral hypoglycemic-controlled Trimester: third trimester Qualified Code(s): O24.415 - Gestational diabetes mellitus in , controlled by oral hypoglycemic drugs (4) Pre-eclampsia or eclampsia superimposed on pre-existing hypertension, antepartum Onset Date: 07/30/17 Current Visit: Yes Status: Resolved (5) Status post Onset Date: 08/01/17 Current Visit: Yes Status: Resolved Plan to address problem: A: S/P Repeat C Section with BTL - POD #3 Doing well Chronic hypertension - not controlled on Labetolol 200mg BID and Procardia XL 30mg QD GDM - stable P: Continue RPOC Will increase Procardia XL 30mg to BID - Continue BP monitoring Subjective - Subjective Date of service: 08/03/17 Principal diagnosis: s/p Repeat C Section with BTL - POD #3 Interval history: Pt is feeling well, without complaints. Tolerating a reg diet without nausea or vomiting, ambulating and voiding without difficulty. Denies headaches or blurred vision. Patient reports: appetite normal, voiding normally, pain well controlled, flatus , ambulating normally, no dizzy ambulation, no nauseated : doing well, in NICU Objective - Vital Signs Latest vital signs: Vital Signs Temp Pulse Resp BP BP Pulse Ox 08/03/17 09:00 70 173/94 08/03/17 05:16 98.4 F 77 20 158/85 97 08/03/17 00:57 160/95 08/03/17 00:41 98.4 F 79 20 171/95 99 08/02/17 21:09 98.5 F 82 20 148/77 97 08/02/17 18:29 98.2 F 84 18 98 08/02/17 18:00 78 20 150/91 08/02/17 12:05 98.9 F 95 H 18 132/85 Intake and Output 08/02/17 08/03/17 08/03/17 22:59 06:59 14:59 Intake Total 480 Balance 480 Intake: Oral 120 Intake, Free Water 360 Other: Total, Intake Amount 120 # Voids Void 1 - Exam Breasts: Present: deferred Cardiovascular: Present: Regular rate Lungs: Present: Clear to auscultation Abdomen: Present: normal appearance Uterus: Present: normal, firm, fundal height below umbilicus Extremities: Present: normal Incision: Present: normal, dry, intact - Labs Labs: Abnormal lab results 08/02/17 08/02/17 08/02/17 Range/Units 07:55 12:08 17:14 POC Glucose 118 H 65 L 53 L (70-105) 08/03/17 Range/Units 07:45 POC Glucose 106 H (70-105)
[2017-08-03] MEDS: MYLICON PO PRN (12:27)
[2017-08-03] MEDS: HumuLIN R SUB-Q SCH (22:00)
[2017-08-04] MEDS: PERCOCET 5/325 PO PRN (05:08)
[2017-08-04] MEDS: CEPACOL X STRENGTH MM PRN (05:10)
[2017-08-04] MEDS: MOTRIN PO PRN (05:10)
[2017-08-04] MEDS: MYLICON PO PRN (05:13)
--- NOTE | 2017-08-04 08:47 | Progress Note ---
Assessment and Plan - Patient Problems (1) 35 weeks gestation of Onset Date: 07/30/17 Current Visit: Yes Status: Resolved (2) AMA (advanced maternal age) multigravida 35+ Onset Date: 07/30/17 Current Visit: Yes Status: Chronic Qualifiers: Trimester: third trimester Qualified Code(s): O09.523 - Supervision of elderly multigravida, third trimester (3) GDM (gestational diabetes mellitus) Onset Date: 07/30/17 Current Visit: Yes Status: Chronic Qualifiers: Gestational diabetes mellitus control: oral hypoglycemic-controlled Trimester: third trimester Qualified Code(s): O24.415 - Gestational diabetes mellitus in , controlled by oral hypoglycemic drugs (4) Pre-eclampsia or eclampsia superimposed on pre-existing hypertension, antepartum Onset Date: 07/30/17 Current Visit: Yes Status: Resolved (5) Status post Onset Date: 08/01/17 Current Visit: Yes Status: Resolved Plan to address problem: A: S/P Repeat C Section with BTL - POD #4 Doing well Chronic hypertension - better controlled on Labetolol 200mg BID and Procardia XL 30mg QD GDM - stable P: May go home today Follow up in office in 1 week for BP check. Subjective - Subjective Date of service: 08/04/17 Principal diagnosis: s/p Repeat C Section with BTL - POD #4 Interval history: Pt is feeling well, without complaints. Tolerating a reg diet without nausea or vomiting, ambulating and voiding without difficulty. Denies headaches or blurred vision. Patient reports: appetite normal, voiding normally, pain well controlled, flatus , ambulating normally : doing well, in NICU Objective - Vital Signs Latest vital signs: Vital Signs Temp Pulse Resp BP BP Pulse Ox 08/04/17 04:10 98.0 F 70 18 157/83 08/04/17 00:15 98.2 F 73 18 145/75 08/03/17 22:10 98.2 F 74 18 137/78 08/03/17 21:48 152/90 08/03/17 17:30 98.8 F 82 18 152/90 08/03/17 16:35 98.7 F 85 18 150/91 98 08/03/17 09:00 70 173/94 Intake and Output 08/03/17 08/04/17 08/04/17 22:59 06:59 14:59 Intake Total 240 Balance 240 Intake: Oral 240 Other: Total, Intake Amount 240 # Voids Void 1 1 - Exam Breasts: Present: deferred Cardiovascular: Present: Regular rate Lungs: Present: Clear to auscultation Abdomen: Present: normal appearance Uterus: Present: normal, firm, fundal height below umbilicus Extremities: Present: normal Incision: Present: normal, dry, intact - Labs Labs: Abnormal lab results 08/03/17 08/03/17 08/04/17 Range/Units 12:28 17:34 00:16 POC Glucose 111 H 120 H 112 H (70-105)
--- NOTE | 2017-08-04 08:47 | Discharge Summary ---
Providers - Providers Date of Admission: 07/30/17 18:54 Date of discharge: 08/04/17 Attending physician: DEWAYNE STEPHEN 07/30/17 18:14 Consult to Physician [CONS] Urgent Comment: Consulting Provider: EMILY QUINTANA Physician Instructions: Reason For Exam: IUP @ 35 weeks; Preeclampsia Primary care physician: DEWAYNE STEPHEN Hospitalization Reason for admission: IUP - , section, other (Chronic hypertension) Delivery: Procedure: section, bilateral tubal ligation, repeat low transverse Episiotomy: none Laceration: none Incision: normal, dry, intact Other procedures: tubal ligation complications: none Discharge diagnosis: IUP at term delivered baby: female Hospital course: Pt is a 42yo BF EDC 09/02/17; EGA 35 1/7 weeks who presented from the office for evaluation of elevated BP's and headaches for several days - BP 166/ 100. She received care at [facility] since 16 weeks and co-managed by [facility] for AMA, Chronic hypertension - on Labetolol 200mg BID; GDM - on Glyburide 5mg TID and + Down's syndrome screen. She was dispositioned for delivery per [facility], and underwent an uncomplicated Repeat C Section with BTL. By POD #2 she was tolerating a reg diet without nausea or vomiting, ambulating and voiding without difficulty. However her BP's initially was uncontrolled with Labetolol until Procardia XL 30mg BID was added. She will therefore be discharge today on POD#4 in stable condition, with plans to follow up in the office in 1 week for BP check. Condition at discharge: Good Disposition: DC-01 TO HOME OR SELFCARE - Discharge Diagnoses (1) 35 weeks gestation of Status: Resolved (2) AMA (advanced maternal age) multigravida 35+ Status: Chronic Qualifiers: Trimester: third trimester Qualified Code(s): O09.523 - Supervision of elderly multigravida, third trimester (3) GDM (gestational diabetes mellitus) Status: Chronic Qualifiers: Gestational diabetes mellitus control: oral hypoglycemic-controlled Trimester: third trimester Qualified Code(s): O24.415 - Gestational diabetes mellitus in , controlled by oral hypoglycemic drugs (4) Pre-eclampsia or eclampsia superimposed on pre-existing hypertension, antepartum Status: Resolved (5) Status post Status: Resolved Plan - Discharge Medications Prescriptions: Ferrous Sulfate [Feosol 325 MG tab] 325 mg PO BID #60 tablet HYDROcodone/APAP 5-325 [[place] 5/325] 1 each PO Q6HR PRN #30 tablet PRN Reason: Pain Ibuprofen [Motrin] 800 mg PO Q8HR PRN #30 tablet PRN Reason: Moder Pain Unrelieved By [place] Labetalol [Normodyne TAB] 300 mg PO BID #60 tablet NIFEdipine XL [Procardia Xl] 30 mg PO Q12HR #60 tablet Vit Calc,Iron,Folic [ Vitamins] 1 each PO DAILY #30 tablet - Provider Discharge Summary Activity: routine, no sex for 6 weeks, no heavy lifting 4 weeks, no strenuous exercise Diet: routine Instructions: routine Additional instructions: [] Smoking cessation referral if applicable(refer to patient education folder for contact #) [] Refer to [facility]'s [facility] Booklet Call your doctor immediately for: * Fever > 100.5 * Heavy vaginal bleeding ( >1 pad per hour) * Severe persistent headache * Shortness of breath * Reddened, hot, painful area to leg or breast * Drainage or odor from incision. * Keep incision clean and dry at all times and follow doctor's instructions regarding bathing/showering - Follow up plan Follow up: DEWAYNE STEPHEN MD [Primary Care Provider] - 7 Days
[2017-08-04 09:22] VITALS: BP 152/82
[2017-08-04] MEDS: PROCARDIA XL PO SCH (10:25)
[2017-08-04] MEDS: PRENATAL VITAMIN PO SCH (10:25)
[2017-08-04] MEDS: FEOSOL PO SCH (10:25)
[2017-08-04] MEDS: NORMODYNE PO SCH (10:26)
== END 2017-08-04 12:25 | disposition home or self-care (01) | DRG 765 ==
LOC: TRG 13:38 → LD 16:16 → TRG 18:52 → LD 18:54 → OB 07-31 05:07
PROVIDERS: ADMIT Obstetrics & Gynecology; ATTEND Obstetrics & Gynecology
PROC: 10D00Z1 Extraction of Products of Conception, Low, Open Approach (ICD-10-PCS; principal; 2017-07-31)
PROC: 0UL70CZ Occlusion of Bilateral Fallopian Tubes with Extraluminal Device, Open Approach (ICD-10-PCS; 2017-07-31)
PROC: 3E0234Z Introduction of Serum, Toxoid and Vaccine into Muscle, Percutaneous Approach (ICD-10-PCS; 2017-08-01)
DX: O60.14X0 Preterm labor third trimester with preterm delivery third trimester, not applicable or unspecified (principal); O10.92 Unspecified pre-existing hypertension complicating childbirth; O14.94 Unspecified pre-eclampsia, complicating childbirth; O24.425 Gestational diabetes mellitus in childbirth, controlled by oral hypoglycemic drugs; O34.211 Maternal care for low transverse scar from previous cesarean delivery; Z37.0 Single live birth; Z30.2 Encounter for sterilization; Z3A.35 35 weeks gestation of pregnancy; O09.523 Supervision of elderly multigravida, third trimester; O90.89 Other complications of the puerperium, not elsewhere classified; J02.9 Acute pharyngitis, unspecified; Z23 Encounter for immunization
CPT/HCPCS: 36415; 81001; 82565; 82962; 83615; 83735; 84450; 84460; 84550; 85014; 85018; 85027; 86850; 86900; 86901; 88307; 99211; C9250; G0463; J0360; J0690; J1170; J1885; J2274; J2590; J2765; J3475; J7120; J7121